=== PATIENT | female | born 1980 | race Caucasian/White ===

== ENCOUNTER 2020-10-01 17:23 | Emergency (ER) | payer OTHER ==
[~2020-10-01 17:23] MED LIST: BACTRIM DS TAB1 EACH PO
[2020-10-01 18:07] LABS: BASOPHIL 0.6 % (0-2); EOSINOPHIL 1.1 % (0-5); HCT 42.5 % (37.0-47.0); HGB 14.5 g/dl (12.5-16.0); LYMPHOCYTE 42.1 % (15-48); MCH 30.1 pg (25.0-31.0); MCHC 34.1 g/dL (32.0-36.0); MCV 88.2 fL (78.0-100.0); MONOCYTE 5.6 % (0-12); MPV 8.9 fL (6.0-9.5); NRBC 0.1; PLT 369 K/uL (150-400); RBC 4.82 M/uL (4.20-5.40); RDW 13.1 % (11.5-14.0); WBC 13.8 K/uL (4.0-10.5)
[2020-10-01 18:15] LABS: NEUTROPHIL 50.2 % (41-80)
[2020-10-01 18:20] LABS: CREATININE 0.81 mg/dL (0.51-0.95); POTASSIUM 3.2 mmol/L (3.5-5.1)
== END 2020-10-01 20:48 | disposition home or self-care (01) ==
LOC: FER 17:23
PROVIDERS: Nurse Practitioner Family
DX: K21.9 Gastro-esophageal reflux disease without esophagitis (principal)
CPT/HCPCS: 36415; 71045; 80048; 84484; 85025; 93005